=== PATIENT | female | born 2000 | race Caucasian/White ===

== ENCOUNTER 2020-01-07 09:07 | Outpatient (REF) | payer OTHER, SELFPAY | END 2020-01-07 09:08 | disposition home or self-care (01) | LOC: HO.LAB 09:07 | PROVIDERS: Visit Provider Internal Medicine | DX: Z20.828 Contact with and (suspected) exposure to other viral communicable diseases (principal) | CPT/HCPCS: U0003 ==

== ENCOUNTER 2020-02-23 10:58 | Outpatient (REF) | payer OTHER, SELFPAY | END 2020-02-23 10:59 | disposition home or self-care (01) | LOC: HO.LAB 10:58 | PROVIDERS: Visit Provider Internal Medicine | DX: Z20.828 Contact with and (suspected) exposure to other viral communicable diseases (principal) | CPT/HCPCS: C9803; U0003 ==

== ENCOUNTER 2020-05-10 08:16 | Emergency (ER) | payer OTHER, SELFPAY ==
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
[2020-05-10 08:20] VITALS: BP 115/54; PULSE 77; RESP 18; TEMP 36.6; O2SAT 99; BMI 44.0
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
[2020-05-10 09:13] LABS: UPreg QC Valid YES; Urine Pregnancy NEGATIVE (NEGATIVE)
[2020-05-10] MEDS: diazePAM 5 MG TABLET PO (09:16)
== END 2020-05-10 10:40 | disposition home or self-care (01) ==
PROVIDERS: Emergency Provider Emergency Medicine
DX: S13.4XXA Sprain of ligaments of cervical spine, initial encounter (principal); S09.90XA Unspecified injury of head, initial encounter; M54.2 Cervicalgia; G44.309 Post-traumatic headache, unspecified, not intractable; V43.52XA Car driver injured in collision with other type car in traffic accident, initial encounter; Y93.9 Activity, unspecified; Y92.410 Unspecified street and highway as the place of occurrence of the external cause; Y99.9 Unspecified external cause status; Z79.899 Other long term (current) drug therapy
CPT/HCPCS: 70450; 72125; 81025; 99283; 99284